=== PATIENT | female | born 1945 | race Caucasian/White ===

== ENCOUNTER 2021-12-02 16:34 | Emergency (ER) | payer MEDICARE ==
[~2021-12-02] VITALS: Ht 152.4 cm; Wt 51.7 kg
[2021-12-02] MEDS ORDERED: IOHEXOL-350 100 ML BOTTLE ONE (17:29)
[2021-12-02 17:41] LABS: BASOPHILS % 0.4 % (0.0-2.0); EOSINOPHILS % 0.7 % (0.0-5.0); HEMATOCRIT. 37.4 % (36.0-48.0); HEMOGLOBIN. 12.6 g/dL (12.0-16.0); LYMPHOCYTES % 32.8 % (20.0-50.0); MEAN CORPUSCULAR HEMOGLOBIN 32.2 pg (28.0-32.0); MEAN CORPUSCULAR VOLUME 95.4 fL (81.0-99.0); MEAN PLATELET VOLUME 8.2 fl (7.4-10.4); MONOCYTES % 5.5 % (2.0-8.0); NEUTROPHILS % 60.6 % (40.0-76.0); PLATELET 206 x1000/uL (130-400); RED BLOOD CELL COUNT 3.92 mill/uL (4.2-5.4); RED CELL DISTRIBUTION WIDTH 13.1 % (11.6-14.6)
[2021-12-02 17:48] LABS: CLARITY URINE CLEAR (CLEAR); COLOR URINE YELLOW (YELLOW); KETONES URINE 1+ (NEGATIVE); LEUKOCYTE ESTERASE URINE NEGATIVE (NEGATIVE); NITRITE URINE NEGATIVE (NEGATIVE); OCCULT BLOOD URINE TRACE (NEGATIVE); PROTEIN URINE TRACE (NEGATIVE); SPECIFIC GRAVITY URINE 1.028 (1.005-1.030); UROBILINOGEN URINE 0.2 E.U./dL (0.2-1.0)
[2021-12-02 17:50] LABS: CHLORIDE 107 mEq/L (98-107)
[2021-12-02 18:02] LABS: ETHANOL BLOOD < 10 mg/dL
[2021-12-02 18:10] LABS: *AMPHETAMINES SCREEN URINE NEGATIVE (NEGATIVE); *BARBITURATES SCREEN URINE NEGATIVE (NEGATIVE); *BENZODIAZEPINES SCREEN URINE NEGATIVE (NEGATIVE); *COCAINE SCREEN URINE NEGATIVE (NEGATIVE); CANNABINOID URINE SCREEN NEGATIVE (NEGATIVE); METHADONE URINE SCREEN NEGATIVE (NEGATIVE); OPIATES URINE SCREEN NEGATIVE (NEGATIVE); PHENCYCLIDINE URINE SCREEN NEGATIVE (NEGATIVE)
[2021-12-02] MEDS ORDERED: MECLIZINE 25MG TABLET PO ONE (18:30)
[2021-12-02] MEDS ORDERED: ONDANSETRON HCL 4MG/2ML INJ IV ONE (18:30)
[2021-12-02] MEDS ORDERED: MECL-159 MT (19:15)
[2021-12-02 20:01] VITALS: BP 141/92
== END 2021-12-02 19:48 | disposition home or self-care (01) ==
LOC: ER 16:34 → CANBEDREQ 23:28
DX: R42 Dizziness and giddiness (principal); I10 Essential (primary) hypertension; R94.31 Abnormal electrocardiogram [ECG] [EKG]; R26.9 Unspecified abnormalities of gait and mobility; Z71.89 Other specified counseling
CPT/HCPCS: 36415; 70450; 70496; 70498; 71045; 80053; 80305; 80320; 81003; 82962; 84484; 85025; 93005; 96374; 99291; J2405; J8597; Q9967; G0480

== ENCOUNTER 2021-12-14 17:49 | Emergency (ER) | payer MEDICARE ==
[~2021-12-14] VITALS: Ht 149.9 cm; Wt 52.0 kg
[~2021-12-14 17:49] MED LIST: MECL-159 MT
[2021-12-14 18:18] VITALS: BP 163/81
[2021-12-14 19:33] LABS: BASOPHILS % 0.3 % (0.0-2.0); EOSINOPHILS % 0.1 % (0.0-5.0); HEMATOCRIT. 43.6 % (36.0-48.0); HEMOGLOBIN. 14.4 g/dL (12.0-16.0); LYMPHOCYTES % 18.1 % (20.0-50.0); MEAN CORPUSCULAR HEMOGLOBIN 31.8 pg (28.0-32.0); MEAN CORPUSCULAR VOLUME 96.1 fL (81.0-99.0); MEAN PLATELET VOLUME 8.2 fl (7.4-10.4); MONOCYTES % 3.2 % (2.0-8.0); NEUTROPHILS % 78.3 % (40.0-76.0); PLATELET 259 x1000/uL (130-400); RED BLOOD CELL COUNT 4.54 mill/uL (4.2-5.4); RED CELL DISTRIBUTION WIDTH 13.1 % (11.6-14.6)
[2021-12-14 19:39] LABS: CHLORIDE 102 mEq/L (98-107)
[2021-12-14 20:22] LABS: CLARITY URINE CLEAR (CLEAR); COLOR URINE YELLOW (YELLOW); KETONES URINE NEGATIVE (NEGATIVE); LEUKOCYTE ESTERASE URINE NEGATIVE (NEGATIVE); NITRITE URINE NEGATIVE (NEGATIVE); OCCULT BLOOD URINE 1+ (NEGATIVE); PH URINE 7.5 (4.5-8.0); PROTEIN URINE NEGATIVE (NEGATIVE); SPECIFIC GRAVITY URINE 1.005 (1.005-1.030); UROBILINOGEN URINE 0.2 E.U./dL (0.2-1.0)
[2021-12-14] MEDS ORDERED: CEFP200T13 MT (21:20)
[2021-12-14] MEDS ORDERED: LIDOCAINE HCL/EPINEPHRINE 1%-EPI 1:100,000 50 ML VIAL INFIL ONE (21:30)
[2021-12-14] MEDS ORDERED: CEFTRIAXONE SODIUM 1 G/VIAL IM ONE (21:30)
== END 2021-12-14 22:00 | disposition home or self-care (01) ==
LOC: ER 17:49
DX: N39.0 Urinary tract infection, site not specified (principal); R42 Dizziness and giddiness; R03.0 Elevated blood-pressure reading, without diagnosis of hypertension
CPT/HCPCS: 36415; 80053; 81003; 83690; 85025; 93005; 96372; 99284; J0696

== ENCOUNTER 2022-07-19 13:28 | Emergency (ER) | payer MEDICARE, MEDICAID ==
[~2022-07-19] VITALS: Ht 149.9 cm; Wt 52.0 kg
[~2022-07-19 13:28] MED LIST changes: +CEFP200T13 MT
[2022-07-19 13:34] VITALS: BP 142/75
[2022-07-19] MEDS ORDERED: ACETAMINOPHEN 325MG TABLET PO ONE (19:00)
[2022-07-19] MEDS ORDERED: KETOROLAC 60MG/2ML VIAL IM ONE (19:00)
[2022-07-19] MEDS ORDERED: LIDOCAINE 5% PATCH TOP SCH (19:00)
[2022-07-19] MEDS ORDERED: IBUP-2028 MT (19:49)
[2022-07-19] MEDS ORDERED: METH-653 MT (19:49)
[2022-07-19] MEDS ORDERED: LIDO1ADH23 TP (19:49)
[2022-07-19] MEDS ORDERED: TOPUD PO (19:49)
[2022-07-19] MEDS ORDERED: BENZ5.1G TOP (19:58)
== END 2022-07-19 20:10 | disposition home or self-care (01) ==
LOC: ER 13:28
DX: M54.32 Sciatica, left side (principal); K12.0 Recurrent oral aphthae; R03.0 Elevated blood-pressure reading, without diagnosis of hypertension
CPT/HCPCS: 96372; 99283; J1885

== ENCOUNTER 2023-12-18 19:23 | Emergency (ER) | payer MEDICARE, MEDICAID ==
[~2023-12-18] VITALS: Ht 139.7 cm; Wt 48.0 kg
[~2023-12-18 19:23] MED LIST changes: +BENZ5.1G TOP; +IBUP-2028 MT; +LIDO1ADH23 TP; -MECL-159 MT; +MECL-299 MT; +METH-653 MT; +TOPUD PO
[2023-12-18 19:42] VITALS: O2SAT 100
[2023-12-18 21:32] LABS: BASOPHILS % 0.8 % (0.0-2.0); EOSINOPHILS % 1.6 % (0.0-5.0); HEMATOCRIT. 44.7 % (36.0-48.0); HEMOGLOBIN. 15.1 g/dL (12.0-16.0); MEAN CORPUSCULAR HEMOGLOBIN 32.9 pg (28.0-32.0); MEAN CORPUSCULAR HGB CONC 33.9 g/dL (31.0-37.0); MEAN PLATELET VOLUME 8.3 fl (7.4-10.4); MONOCYTES % 6.9 % (2.0-8.0); NEUTROPHILS % 49.7 % (40.0-76.0); PLATELET 243 x1000/uL (130-400); RED BLOOD CELL COUNT 4.61 mill/uL (4.2-5.4); RED CELL DISTRIBUTION WIDTH 13.2 % (11.6-14.6); WHITE BLOOD COUNT 6.2 x1000/uL (4.5-11.0)
[2023-12-18 21:36] LABS: CARBON DIOXIDE 29 mEq/L (21-32); CHLORIDE 107 mEq/L (98-107); POTASSIUM 4.2 mEq/L (3.5-5.1); SODIUM 140 mEq/L (136-145)
[2023-12-18 21:37] LABS: CALCIUM 9.8 mg/dL (8.7-10.4)
[2023-12-18 21:42] LABS: CREATININE 0.7 mg/dL (0.6-1.0); GLUCOSE 125 mg/dL (70-105)
[2023-12-18 21:43] LABS: UREA NITROGEN BLOOD 16 mg/dL (9-23)
[2023-12-18] MEDS ORDERED: MINE50OI TP (22:43)
[2023-12-18 22:59] VITALS: BP 151/77; PULSE 61; RESP 16; TEMP 97.9
== END 2023-12-18 23:07 | disposition home or self-care (01) ==
LOC: ER 19:23
DX: L20.9 Atopic dermatitis, unspecified (principal); Z79.899 Other long term (current) drug therapy
CPT/HCPCS: 36415; 80048; 83735; 85025; 99283